=== PATIENT | male | born 1945 | race Caucasian/White ===

== ENCOUNTER 2020-06-03 18:23 | Emergency (ER) | payer MEDICARE, BC ==
[~2020-06-03] VITALS: Ht 167.6 cm; Wt 77.7 kg
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
--- NOTE | 2020-06-03 19:21 | RAD ---
Exam: Right hand 3 views INDICATION: Pain over the thumb, trauma TECHNIQUE: Frontal, lateral and oblique views of the right hand Comparisons: None FINDINGS: Diffuse osteopenia. There is severe degenerative change at the first CMC joint. Subtle irregularity a t the base of the first digit metacarpal. Joint spaces are otherwise well-maintained. Soft tissues ar e unremarkable. IMPRESSION: Subtle irregularity at the proximal first metacarpal, may relate to nondisplaced fracture. Correlate with point tenderness. Electronically signed by: Joselin Curtis MD (06/03/2020 7:19 PM) [facility]
--- NOTE | 2020-06-03 19:22 | RAD ---
Exam: Right finger 3 views INDICATION: Frontal, lateral and oblique views of the first digit TECHNIQUE: None Comparisons: None FINDINGS: Bone mineralization is normal. No acute or healed fractures. Soft tissues are unremarkable. Joint spa ryland are well-maintained. IMPRESSION: No acute osseous abnormality. Electronically signed by: Joselin Curtis MD (06/03/2020 7:20 PM) [facility]
[2020-06-03 20:00] VITALS: BP 143/80
== END 2020-06-03 20:05 | disposition home or self-care (01) ==
LOC: ER 18:23
DX: S69.81XA Other specified injuries of right wrist, hand and finger(s), initial encounter (principal); M79.644 Pain in right finger(s); E78.00 Pure hypercholesterolemia, unspecified; I10 Essential (primary) hypertension; Z85.9 Personal history of malignant neoplasm, unspecified; Z86.73 Personal history of transient ischemic attack (TIA), and cerebral infarction without residual deficits; Z90.89 Acquired absence of other organs; Z98.890 Other specified postprocedural states; X58.XXXA Exposure to other specified factors, initial encounter; Y93.89 Activity, other specified; Y92.89 Other specified places as the place of occurrence of the external cause; Y99.8 Other external cause status
CPT/HCPCS: 29130; 73130; 73140; 99284